=== PATIENT | male | born 1975 | race Caucasian/White ===

== ENCOUNTER 2019-11-26 18:37 | Emergency (ER) | payer OTHER ==
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
[2019-11-26 19:26] VITALS: BP 121/79
[2019-11-26] MEDS ORDERED: Acetaminophen TAB* 325 MG PO ONE (20:06)
--- NOTE | 2019-11-26 20:20 | UC ---
FLU HPI - HPI Summary HPI Summary: Patient is a 44yo male presenting with for dry cough, fever, and chills since yesterday. Denies sob and wheezing. Patient states he was seen 3 days ago and diagnosed with sinusitis by his pcp. Currently being treated with amoxicillin for it. States sinus congestion improving but now has this cough. Normal appetite and fluid intake. Denies taking anything else for symptom relief. - History of Current Complaint Chief Complaint: UCRespiratory Stated Complaint: SINUS/CHEST COLD Hx Obtained From: Patient Pain Intensity: 0 - Allergy/Home Medications Allergies/Adverse Reactions: Allergies Allergy/AdvReac Type Severity Reaction Status Date / Time aspirin Allergy Swelling Verified 11/26/19 19:20 Home Medications: Home Medications Amoxicillin PO (*) [Amoxicillin 500 MG CAP*] 500 mg PO TID 11/26/19 [History Confirmed 11/26/19] Azelastine 0.15% NASAL(NF) [Astepro 0.15% NASAL (NF)] 1 spray NASAL BID PRN 02/09 [History Confirmed 11/26/19] hydrOXYzine HCL TAB* [Atarax 25 MG TAB*] 1 tab TID PRN 11/26/19 [History Confirmed 11/26/19] lamoTRIgine TAB(*) [Lamictal TAB(*)] 200 mg DAILY 11/26/19 [History Confirmed ] PMH/Surg Hx/FS Hx/Imm Hx - Surgical History Surgical History: None - Family History Known Family History: Positive: Non-Contributory - Social History Alcohol Use: Occasionally Substance Use Type: None Smoking Status (MU): Never Smoked Tobacco Review of Systems All Other Systems Reviewed And Are Negative: Yes Constitutional: Positive: Fever, Chills Respiratory: Positive: Cough. Negative: Shortness Of Breath Cardiovascular: Positive: Negative Gastrointestinal: Positive: Negative Musculoskeletal: Positive: Negative Neurological/Mental Status: Positive: Negative Physical Exam - Summary Physical Exam Summary: Vital Signs Reviewed: Yes A+Ox3, no distress Eyes: Conjunctiva inflamed b/l ENT: Hearing grossly normal, TM x 2 clear, moist, uvula midline, no exudate, no erythema Neck: Positive: Supple Respiratory: Positive: No respiratory distress, No accessory muscle use + CTA throughout no w/r Cardiovascular: mild tachycardia, regular rhythm, nl s1, s2 no m/r Musculoskeletal Exam: ANDERSON x 4 without difficulty Neurological: Positive: Alert Psychological: Positive: age appropriate behavior Skin: Positive: no rash, no ecchymosis Vital Signs: Initial Vital Signs Temp 101.7 F 11/26/19 19:23 Pulse 103 11/26/19 19:23 Resp 16 11/26/19 19:23 BP 121/79 11/26/19 19:23 Pulse Ox 98 11/26/19 19:23 Lab Results 11/26/19 Range/Units 20:17 Influenza A (Rapid) Negative (Negative) Influenza B (Rapid) Negative (Negative) Flu Course/Dx - Course Course Of Treatment: Negative rapid flu test. Discussed likely viral illness and symptomatic treatment with the patient. Patient declined treatment with Tamiflu at this time. I informed the patient that he may continue taking amoxicillin for treatment of sinusitis if nasal congestion has been improving with treatment. Instructed to follow up with PCP if symptoms persist or worsen. Patient voiced understanding and agreed with the treatment plan. - Differential Dx/Diagnosis Differential Diagnosis/HQI/PQRI: Bronchitis, Influenza, Upper Respiratory Infection Provider Diagnosis: Flu-like symptoms Discharge ED - Sign-Out/Discharge Documenting (check all that apply): Patient Departure All imaging exams completed and their final reports reviewed: No Studies - Discharge Plan Condition: Stable Disposition: HOME Patient Education Materials: Viral Syndrome (ED) Forms: *Work Release Referrals: Joseph Blas DO [Primary Care Provider] - If Needed Additional Instructions: You tested negative for influenza today. Your symptoms are likely viral and should resolve without treatment. You may continue with motrin and tylenol for fever and pain relief. Get plenty of rest and increase your fluid intake. Follow up with your primary care provider if symptoms do not improve within 7- 10 days. - Billing Disposition and Condition Condition: STABLE Disposition: Home
[2019-11-26 20:28] LABS: Influenza A Molecular Negative (Negative); Influenza B Molecular Negative (Negative)
== END 2019-11-26 20:44 | disposition home or self-care (01) ==
LOC: UCCORT 18:37
DX: R05 Cough (principal); R50.9 Fever, unspecified; R09.81 Nasal congestion; Z88.6 Allergy status to analgesic agent
CPT/HCPCS: 99202; A9270-GY; G0463